=== PATIENT | male | born 1975 | race Caucasian/White ===

== ENCOUNTER 2021-01-30 02:57 | Emergency (ER) | payer MEDICAID ==
[~2021-01-30] VITALS: Ht 177.8 cm; Wt 81.8 kg
[~2021-01-30 02:57] MED LIST: AMOX500T2 PO; AZIT250T PO; CLIN-97 PO; CLIN150C8 PO; HYDR-4353 PO; HYDR-4383 PO; NO HOME MEDS
--- NOTE | 2021-01-30 03:24 | NUR ---
called Surgical, informed to do a wet to dry and refer pt to wound care tomorrow where a wound vac can be ordered by [facility]. Dr Mcdonald and Caesar PERES
[2021-01-30] MEDS ORDERED: CEPH-585 PO (03:28)
[2021-01-30] MEDS ORDERED: ONDA4TAB6 PO (03:28)
[2021-01-30] MEDS ORDERED: HYDR-3964 PO (03:28)
--- NOTE | 2021-01-30 04:04 | NUR ---
rewrapped wound. couldnt take out foam because foam was stapled and sutured in. wound is very wet and bloody. pain 8/10. prescriptions given for pharmacy. education to go back to [facility] [place] to have wound vac put in and finish treatment. pt verbalize understanding
[2021-01-30 04:35] VITALS: BP 132/84
== END 2021-01-30 04:37 | disposition home or self-care (01) ==
LOC: ER 02:58
DX: L02.413 Cutaneous abscess of right upper limb (principal); Z98.890 Other specified postprocedural states; Z72.89 Other problems related to lifestyle; Z60.2 Problems related to living alone; Z79.2 Long term (current) use of antibiotics; Z79.899 Other long term (current) drug therapy
CPT/HCPCS: 99283

== ENCOUNTER 2021-07-08 21:07 | Emergency (ER) | payer SELFPAY ==
[~2021-07-08 21:07] MED LIST changes: +CEPH-585 PO; +ONDA4TAB6 PO
== END 2021-07-08 21:42 | disposition home or self-care (01) ==
LOC: ER 21:08
DX: Z53.21 Procedure and treatment not carried out due to patient leaving prior to being seen by health care provider (principal)